=== PATIENT | female | born 1995 | race Caucasian/White ===

== ENCOUNTER 2018-02-12 04:39 | Emergency (ER) | payer MEDICAID ==
[~2018-02-12] VITALS: Ht 157.5 cm; Wt 52.2 kg
[2018-02-12 05:01] VITALS: BP 98/68
[2018-02-12] MEDS ORDERED: ONDANSETRON 4 MG TAB.RAPDIS ONE (05:18)
[2018-02-12] MEDS ORDERED: HYDROMORPHONE 1 MG/1 ML DISP.SYRIN ONE (05:18)
[2018-02-12] MEDS ORDERED: ONDANSETRON 4 MG TAB.RAPDIS SL ONE (05:30)
[2018-02-12] MEDS ORDERED: HYDROMORPHONE 1 MG/1 ML DISP.SYRIN IM ONE (05:30)
== END 2018-02-12 06:14 | disposition home or self-care (01) ==
LOC: ER 04:41
DX: R51 Headache (principal); F41.9 Anxiety disorder, unspecified; Z60.2 Problems related to living alone
CPT/HCPCS: 96372; 99283; A4606; J1170; Q0162; Z7610